=== PATIENT | female | born 1970 | race Caucasian/White ===

== ENCOUNTER 2020-12-25 17:30 | Outpatient (CLI) | payer BC | END 2020-12-25 23:59 | disposition home or self-care (01) | LOC: D.MAMMO 17:30 | PROVIDERS: ATTEND Obstetrics & Gynecology | DX: Z12.31 Encounter for screening mammogram for malignant neoplasm of breast (principal) ==

== ENCOUNTER 2020-12-31 18:00 | Outpatient (CLI) | payer BC | END 2020-12-31 23:59 | disposition home or self-care (01) | LOC: D.MAMMO 18:00 | PROVIDERS: ATTEND Obstetrics & Gynecology | DX: R92.8 Other abnormal and inconclusive findings on diagnostic imaging of breast (principal) ==